=== PATIENT | female | born 1955 | race Caucasian/White ===

== ENCOUNTER → 2016-06-23 | Outpatient (CLI) | payer OTHER ==
[~2016-06-23] MED LIST: DCS100C PO; ESTR1TAB24 PO; HYDR-1231 PO; HYDR-89 PO; IBP800T PO; LEVO250T7 PO; LISI10TA PO; PROM12.59 PO; TRAZ150T42 PO
--- OUTSIDE RECORDS SUMMARY | 2016-06-23 08:10 | XMS REPORT | Continuity of Care Document ---
Author Author [facility] Organization [facility] Address Unknown Phone Unavailable Care Team Providers Care Nurse Practitioner Name Role Phone DIANELYS PAYAN DO PCP Insurance Providers Payer Name Policy Number Subscriber Name Relationship [facility] [employer]. [id number] Marcy Cunningham 17 Self / Same As Patient Advance Directives Directive Response Recorded Date/Time Advance Directives No 06/13/14 10:53pm Health Care Power of Mill [employer] No 06/13/14 10:53pm Organ Donor No 06/13/14 10:53pm Resuscitation Status Full Code 06/13/14 10:53pm Problems Medical Problems Problem Onset Date Status Bimalleolar ankle fracture Unknown Active Medications Medication Dose Route Sig Days/Qty Instructions Order Date Discontinued Date Status Lisinopril (Zestril) 1 Each PO BEDTIME 04/15/10 Active Trazodone Hcl 100 Mg PO BEDTIME 04/15/10 Active Estradiol 1 Mg PO BEDTIME 04/15/10 Active Docusate Sodium 100 Mg PO TWICE A DAY 04/22/10 Active Estradiol 2 Mg PO DAILY 04/22/10 07/25/12 Discontinued Levofloxacin 1 Each PO DAILY 04/22/10 07/25/12 Discontinued Acetaminophen/Hydrocodone Bitart 1 - 2 Each PO Q 3 HR PRN PAIN 07/25/12 Discontinued Ibuprofen 800 Mg PO Q 6 HR PRN CRAMPS 04/22/10 07/25/12 Discontinued Promethazine Hcl 12.5 Mg PO Q 3 HR PRN NAUSEA. 04/22/10 07/25/12 Discontinued Hydrocodone Bit/Acetaminophen 1 Tab PO EVERY 4HRS PRN PAIN 20 Qty 06/14 Active Social History Social History Problem Response Recorded Date/Time Alcohol Use Denies Use 06/13/2014 10:53pm Recreational Drug Use No 06/13/2014 10:53pm Recent Foreign Travel No 06/13/2014 10:51pm Recent Infectious Disease Exposure No 06/13/2014 10:51pm Smoking Status Never a Smoker 06/13/2014 10:53pm Query Response Start Date Stop Date Smoking Status Never a Smoker Hospital Discharge Instructions No hospital discharge instructions. Plan of Care No plan of care. Functional Status No functional status results. Allergies, Adverse Reactions, Alerts Allergen Type Severity Reaction Status Last Updated latex Allergy EYE SWELLING, RASH Active 04/15/10 RUBBER Allergy EYE SWELLING, RASH Active 04/15/10 Immunizations Name Given Type Tetanus Booster (TDap) Unknown Historical Vital Signs Acute Vital Signs Vital Response Date/Time Temperature (Fahrenheit) 98.8 degrees F (97.6 - 99.5) Temperature (Calculated Celsius) 37.51137 degrees C (36.4 - 37.5) Temperature Source Temporal Pulse Rate (adult) 88 bpm (60 - 90) Respiratory Rate 18 bpm (12 - 24) O2 Sat by Pulse Oximetry 98 % (88 - 100) Blood Pressure 135/82 mm Hg Pain Pain Intensity 2 Height (Feet) 5 feet Height (Inches) 0 inches Height (Calculated Centimeters) 152.340054 cm Weight (Pounds) 129 pounds Weight (Calculated Kilograms) 58.090675 kilograms Calculated BMI 25.19 Results No known relevant diagnostic tests, laboratory data and/or discharge summary. Procedures No known history of procedures. Encounters Encounter Location Date/Time Departed Emergency Room [facility] 06/13/14 9:37pm Recent Diagnosis
--- NOTE | 2016-06-23 18:41 | Diagnostic Imaging Report ---
Ultrasound right breast limited. INDICATION: Follow-up exam. FINDINGS: The previous right breast ultrasound exam performed on 05/08/2015 noted a 0.8 x 0.7 x 0.8 cm partially cystic lesion in the 9 o'clock position of the right breast roughly 5 cm from the nipple. There is no internal vascularity associated with this finding. This area of mixed echogenicity appears stable on the subsequent ultrasound exam of 12/02/2015. On this study, the area in question is again evident and no different in size or appearance. I do suspect that this is a benign process. Even so, I would recommend that a short-term (6-month) follow-up ultrasound exam of the right breast be obtained for further evaluation of this finding. No other abnormality is identified. IMPRESSION: The complex cystic mass in the 9 o'clock position in the right breast seen previously appears stable. Most likely, this is a benign process. Recommendations as above. ACR BI-RADS Category 3: Probably benign findings. Dictated by: Dictated on workstation # [id number]
--- NOTE | 2016-06-23 19:58 | Diagnostic Imaging Report ---
INDICATION: Abnormal mammogram, followup. At this time there are no current complaints. EXAMINATION: Bilateral breast digital diagnostic mammogram with CAD. The current study was also evaluated with a Computer Aided Detection (CAD) system. COMPARISON: This study was compared to the prior exams of 04/28/15, 04/01/14, 02/13/13 and 02/09/12. FINDINGS: The fibroglandular tissue in both breasts is dense. This does limit the sensitivity of this exam. The previous right breast ultrasound exam of 05/08/15 did note a complex cystic lesion in the 9 o'clock position of the right breast, roughly 5 cm from the nipple. This measures roughly 1 cm in size. That finding is not particularly well-visualized but does not seem to have changed significantly since the prior study. Ultrasound of the right breast is pending for further evaluation. The overall appearance of the breast is otherwise no different. There is no primary or secondary sign of malignancy noted. IMPRESSION: 1. There is no evidence for malignancy. 2. Ultrasound is pending for further evaluation of the complex cystic lesion in the 9 o'clock position of the right breast. ACR BI-RADS Category 0: Incomplete. (Needs additional imaging evaluation). Result letter will be mailed to the patient. Note: At least 10% of breast cancer is not imaged by mammography. Dictated by: Dictated on workstation # [id number]
== END ==
LOC: RAD 08:07
PROVIDERS: ATTEND Family Medicine
DX: R92.8 Other abnormal and inconclusive findings on diagnostic imaging of breast (principal)
CPT/HCPCS: 77066

== ENCOUNTER 2016-11-14 11:04 | Observation (INO) | payer OTHER ==
[~2016-11-14] VITALS: Ht 152.4 cm; Wt 58.5 kg
--- NOTE | 2016-11-14 11:18 | ED EENT ---
History of Present Illness General Stated Complaint: WEAK/SHAKY SOA Source: patient Exam Limitations: no limitations History of Present Illness Time seen by provider: 11:16 Initial Comments To ER with weakness, shakiness, shortness of breath/dyspnea on exertion for the past week. She denies any chest pain. She denies cough. She does report chills but no fevers. She reports tightness in the back of her legs bilaterally but no swelling. She states that when she lays down at night she feels as though her legs cannot relax. Timing/Duration: abrupt Severity: moderate Associated Symptoms: No fever, No nasal congestion/drainage, No sore throat Allergies and Home Medications Allergies Coded Allergies: latex (Unverified Allergy, Unknown, EYE SWELLING, RASH, 11/14/16) Uncoded Allergies: RUBBER (Allergy, Unknown, EYE SWELLING, RASH, 11/14/16) Home Medications Docusate Sodium 100 Mg Capsule, 100 MG PO BID, (Reported) Estradiol 1 Mg Tablet, 1 MG PO HS, (Reported) Hydrocodone Bit/Acetaminophen 1 Tab Tablet, 1 TAB PO Q4H PRN for PAIN, #20 Ref 0 Prescribed by: ADIS MARTELL on 06/14/14 0018 Lisinopril 10 Mg Tablet, 1 EACH PO HS, (Reported) Trazodone Hcl 150 Mg Tablet, 100 MG PO HS, (Reported) Review of Systems Constitutional: see HPI Eyes: No Symptoms Reported Ears: No Symptoms Reported Nose: no symptoms reported Mouth: no symptoms reported Throat: no symptoms reported Respiratory: no symptoms reported Cardiovascular: no symptoms reported Musculoskeletal: no symptoms reported Skin: no symptoms reported Neurological: No Symptoms Reported Hematologic/Lymphatic: No Symptoms Reported Immunological/Allergic: no symptoms reported Past Wgaaqli-Zulltw-Loowxw Hx Patient Social History Recent Foreign Travel: No Contact w/Someone Who Travel: No Immunizations Up To Date Tetanus Booster (TDap): Unknown Surgeries HX Surgeries: No Respiratory Hx Respiratory Disorders: No Cardiovascular Hx Cardiac Disorders: Yes Cardiac Disorders: Hypertension Neurological Hx Neurological Disorders: No Reproductive System Hx Reproductive Disorders: Yes (UTERO VAGINAL PROLAPSE) Genitourinary Hx Genitourinary Disorders: Yes (IRMA) Gastrointestinal Hx Gastrointestinal Disorders: Yes Musculoskeletal Hx Musculoskeletal Disorders: No Endocrine Hx Endocrine Disorders: No HEENT HX ENT Disorders: No Cancer Hx Cancer: No Psychosocial Hx Psychiatric Problems: Yes Behavioral Health Disorders: Sleep Difficulties, Anxiety Blood Transfusions Hx Blood Disorders: No Family Medical History Significant Family History: No Pertinent Family Hx Physical Exam Vital Signs Vital Sign - Last 12Hours 11/14/16 11:08 Temp 97.8 Pulse 85 Resp 12 B/P (MAP) 164/82 Pulse Ox 97 O2 Delivery Room Air General Appearance: WD/WN, no apparent distress Eyes: bilateral eye EOMI, bilateral eye PERRL, bilateral eye normal inspection Ears: bilateral ear TM normal, bilateral ear auricle normal, bilateral ear canal normal Mouth/Throat: normal mouth inspection, pharynx normal Neck: non-tender, full range of motion Cardiovascular: regular rate, rhythm, no murmur Respiratory: no respiratory distress, no accessory muscle use Gastrointestinal: normal bowel sounds, non tender, soft Neurologic/Psychiatric: alert, normal mood/affect, oriented x 3 Skin: normal color, warm/dry Progress/Results/Core Measures Results/Orders Lab Results Laboratory Tests Test 11/14/16 11:10 11/14/16 11:15 11/14/16 12:24 Range/Units White Blood Count 5.4 4.3-11.0 10^3/uL Red Blood Count 4.24 L 4.35-5.85 10^6/uL Hemoglobin 13.2 11.5-16.0 G/DL Hematocrit 39 35-52 % Mean Corpuscular Volume 93 80-99 FL Mean Corpuscular Hemoglobin 31 25-34 PG Mean Corpuscular Hemoglobin Concent 34 32-36 G/DL Red Cell Distribution Width 11.6 10.0-14.5 % Platelet Count 346 130-400 10^3/uL Mean Platelet Volume 9.8 7.4-10.4 FL Neutrophils (%) (Auto) 62 42-75 % Lymphocytes (%) (Auto) 27 12-44 % Monocytes (%) (Auto) 9 0-12 % Eosinophils (%) (Auto) 2 0-10 % Basophils (%) (Auto) 0 0-10 % Neutrophils # (Auto) 3.3 1.8-7.8 X 10^3 Lymphocytes # (Auto) 1.4 1.0-4.0 X 10^3 Monocytes # (Auto) 0.5 0.0-1.0 X 10^3 Eosinophils # (Auto) 0.1 0.0-0.3 10^3/uL Basophils # (Auto) 0.0 0.0-0.1 10^3/uL D-Dimer 0.31 0.00-0.49 UG/ML Sodium Level 136 135-145 MMOL/L Potassium Level 3.7 3.6-5.0 MMOL/L Chloride Level 102 98-107 MMOL/L Carbon Dioxide Level 25 21-32 MMOL/L Anion Gap 9 5-14 MMOL/L Blood Urea Nitrogen 6 L 7-18 MG/DL Creatinine 0.75 0.60-1.30 MG/DL Estimat Glomerular Filtration Rate > 60 BUN/Creatinine Ratio 8 Glucose Level 114 H 70-105 MG/DL Calcium Level 9.1 8.5-10.1 MG/DL Total Bilirubin 0.6 0.1-1.0 MG/DL Aspartate Amino Transf (AST/SGOT) 23 5-34 U/L Alanine Aminotransferase (ALT/SGPT) 26 0-55 U/L Alkaline Phosphatase 124 40-136 U/L Troponin I < 0.30 <0.30 NG/ML B-Type Natriuretic Peptide 23.8 <100.0 PG/ML Total Protein 7.6 6.4-8.2 GM/DL Albumin 3.9 3.2-4.5 GM/DL Erythrocyte Sedimentation Rate 32 H 0-30 MM/HR C-Reactive Protein High Sensitivity 0.50 0.00-0.50 MG/DL Urine Color YELLOW Urine Clarity CLEAR Urine pH 7 5-9 Urine Specific [place] 1.005 L 1.016-1.022 Urine Protein NEGATIVE NEGATIVE Urine Glucose (UA) NEGATIVE NEGATIVE Urine Ketones NEGATIVE NEGATIVE Urine Nitrite NEGATIVE NEGATIVE Urine Bilirubin NEGATIVE NEGATIVE Urine Urobilinogen NORMAL NORMAL MG/DL Urine Leukocyte Esterase NEGATIVE NEGATIVE Urine RBC (Auto) NEGATIVE NEGATIVE Urine RBC NONE /HPF Urine WBC 0-2 /HPF Urine Squamous Epithelial Cells 2-5 /HPF Urine Crystals NONE /LPF Urine Bacteria NEGATIVE /HPF Urine Casts NONE /LPF Urine Mucus NEGATIVE /LPF Urine Culture Indicated NO My Orders Orders - BRIAN DUMONT APRN Cbc With Automated Diff (11/14/16 11:07) Comprehensive Metabolic Panel (11/14/16 11:07) BNP (11/14/16 11:07) Fibrin Degradation Products (11/14/16 11:07) Ekg Tracing (11/14/16 11:07) Continuous Ekg Monitoring (11/14/16 11:07) Chest 1 View, Ap/Pa Only (11/14/16 11:07) Saline Lock/Iv-Start (11/14/16 11:07) Ua Culture If Indicated (11/14/16 11:07) Troponin I (11/14/16 11:15) Hs C Reactive Protein (11/14/16 11:31) Erythrocyte Sedimentation Rate (11/14/16 11:31) Ct Angio Chest W (11/14/16 12:02) Iohexol Injection (Omnipaque 350 Mg/Ml 1 (11/14/16 12:15) Sodium Chloride Flush (Catheter Flush Sy (11/14/16 12:15) Ns (Ivpb) (Sodium Chloride 0.9% Ivpb Bag (11/14/16 12:15) Medications Given in ED Current Medications Medications Dose Ordered Sig/Johnnie Route Start Time Stop Time Status Last Admin Dose Admin Iohexol 125 ml ONCE ONCE IV 11/14/16 12:15 11/14/16 12:16 DC 11/14/16 12:15 125 ML Sodium Chloride 10 ml NEEDED PRN IV 11/14/16 12:15 11/14/16 12:15 10 ML Sodium Chloride 100 ml ONCE ONCE IV 11/14/16 12:15 11/14/16 12:16 DC 11/14/16 12:15 80 ML Vital Signs/I&O Vital Sign - Last 12Hours 11/14/16 11:08 Temp 97.8 Pulse 85 Resp 12 B/P (MAP) 164/82 Pulse Ox 97 O2 Delivery Room Air Progress Note : Progress Note 1311-patient did have an increase in heart rate from 80s sinus to 131 sinus upon ambulation down the hallway in the emergency room. Oxygen saturation remained 98-100 percent. Denied chest pain. Discussed this with Dr. Dr. Payan and he would like to put her in with cardiology consult. Diagnostic Imaging Diagonstic Imaging: Xray Comments NAME: JAMES CUNNINGHAMNancy Sargent MED REC#: [id number] PT STATUS: REG ER : 1955 PHYSICIAN: BRIAN DUMONT APRN ADMIT DATE: 11/14/16/ER Draft Date of Exam:11/14/16 CHEST 1 VIEW, AP/PA ONLY Portable erect AP chest at 1139h. INDICATION: Shortness of breath. There are no prior studies available for comparison. Heart size is within normal limits. The lungs are clear. There is no sign of failure, pneumonia or a pleural effusion to suggest an acute abnormality. There is a small 4 MM rounded noncalcified nodular density in the right perihilar region. I suspect that this is either due to a vessel seen on end or to a granuloma. If previous studies are available they would be helpful for comparison. The mediastinum is not widened. The osseous structures are intact. IMPRESSION: 1. There is no evidence for an acute cardiopulmonary abnormality. 2. The small nodular density in the right perihilar region is of uncertain etiology although most likely benign. Recommendations as above. Dictated on workstation # [id number] Dict: 11/14/16 1148 Trans: 11/14/16 1159 FELICITA [id number] Interpreted by: ODELL ALEMAN MD Electronically signed by: NAME: EDIN CUNNINGHAM [facility] REC#: [id number] PT STATUS: REG ER : 1955 PHYSICIAN: BRIAN DUMONT APRN ADMIT DATE: 11/14/16/ER Draft Date of Exam:11/14/16 CT ANGIO CHEST W PROCEDURE: CT angiography of the chest with contrast. TECHNIQUE: Multiple contiguous axial images were obtained through the chest after uneventful bolus administration of intravenous contrast. Reconstructed CTA MIP acquisitions were also performed. INDICATION: Weakness. Shortness of breath. CONTRAST: 125 mL of Omnipaque 350 was administered intravenously. FINDINGS: The pulmonary arteries are well opacified with no filling defects seen to suggest pulmonary embolism. The thoracic aorta is normal in caliber. No dissection. The heart size is normal. No pleural or pericardial effusion. There is minimal atelectasis or scarring in the right middle lobe. There is otherwise no significant consolidation, mass, or suspicious pulmonary nodule. There is a small hiatal hernia. Sections of the upper abdomen demonstrate no significant abnormality. The osseous structures also appear grossly unremarkable. IMPRESSION: 1. No pulmonary embolism or aortic dissection. 2. Minimal atelectasis or scarring in the right middle lobe. 3. Small hiatal hernia. Dictated on workstation # [id number] Dict: 11/14/16 1227 Trans: 11/14/16 1248 [id number] Interpreted by: AUDREY SKAGGS MD Electronically signed by: Departure Communication Time/Spoke to Consulting Physi: 13:17 Communication/Consulting I also discussed the case with Dr. García. We will admit the patient, 2-D echocardiogram today and a pharmacologic stress test in the morning. Progress Notes NAME: EDIN CUNNINGHAM [facility] REC#: [id number] PT STATUS: REG ER : 1955 PHYSICIAN: BRIAN DUMONT APRN ADMIT DATE: 11/14/16/ER Draft Date of Exam:11/14/16 CHEST 1 VIEW, AP/PA ONLY Portable erect AP chest at 1139h. INDICATION: Shortness of breath. There are no prior studies available for comparison. Heart size is within normal limits. The lungs are clear. There is no sign of failure, pneumonia or a pleural effusion to suggest an acute abnormality. There is a small 4 MM rounded noncalcified nodular density in the right perihilar region. I suspect that this is either due to a vessel seen on end or to a granuloma. If previous studies are available they would be helpful for comparison. The mediastinum is not widened. The osseous structures are intact. IMPRESSION: 1. There is no evidence for an acute cardiopulmonary abnormality. 2. The small nodular density in the right perihilar region is of uncertain etiology although most likely benign. Recommendations as above. Dictated on workstation # [id number] Dict: 11/14/16 1148 Trans: 11/14/16 1159 [facility] [id number] Interpreted by: ODELL ALEMAN MD Electronically signed by: Impression Impression: Primary Impression: Dyspnea Disposition: ADMITTED INPATIENT Condition: Stable Decision to Admit Reason: Admit from ER (General) Decision to Admit/Date: Nov 14, 2016 Time/Decision to Admit Time: 13:12 Departure-Patient Inst. Decision time for Depature: 12:01 Referrals: DIANELYS PAYAN DO (PCP/Family) Primary Care Physician BRIAN DUMONT APRN Nov 14, 2016 11:18
[2016-11-14 11:30] LABS: BASOPHILS % (AUTO) 0 % (0-10); EOSINOPHILS # (AUTO) 0.1 10^3/uL (0.0-0.3); EOSINOPHILS % (AUTO) 2 % (0-10); LYMPHOCYTES # (AUTO) 1.4 X 10^3 (1.0-4.0); LYMPHOCYTES % (AUTO) 27 % (12-44); MEAN CORPUSCULAR HEMOGLOBIN 31 PG (25-34); MEAN CORPUSCULAR HGB CONC 34 G/DL (32-36); MEAN CORPUSCULAR VOLUME 93 FL (80-99); MEAN PLATELET VOLUME 9.8 FL (7.4-10.4); MONOCYTES # (AUTO) 0.5 X 10^3 (0.0-1.0); MONOCYTES % (AUTO) 9 % (0-12); NEUTROPHILS # (AUTO) 3.3 X 10^3 (1.8-7.8); NEUTROPHILS % (AUTO) 62 % (42-75); PLATELET COUNT 346 10^3/uL (130-400); RED BLOOD COUNT 4.24 10^6/uL (4.35-5.85); RED CELL DISTRIBUTION WIDTH 11.6 % (10.0-14.5); WHITE BLOOD COUNT 5.4 10^3/uL (4.3-11.0)
[2016-11-14 11:45] LABS: ALANINE AMINOTRANSFERASE 26 U/L (0-55); ALBUMIN 3.9 GM/DL (3.2-4.5); ANION GAP 9 MMOL/L (5-14); ASPARTATE AMINO TRANSFERASE 23 U/L (5-34); BILIRUBIN,TOTAL 0.6 MG/DL (0.1-1.0); BLOOD UREA NITROGEN 6 MG/DL (7-18); BUN/CREATININE RATIO 8; CALCIUM 9.1 MG/DL (8.5-10.1); CARBON DIOXIDE 25 MMOL/L (21-32); CHLORIDE 102 MMOL/L (98-107); CREATININE SERUM 0.75 MG/DL (0.60-1.30); GFR ESTIMATED > 60; GLUCOSE 114 MG/DL (70-105); POTASSIUM 3.7 MMOL/L (3.6-5.0); SODIUM 136 MMOL/L (135-145); TOTAL PROTEIN 7.6 GM/DL (6.4-8.2)
[2016-11-14 11:51] LABS: TROPONIN I < 0.30 NG/ML (<0.30)
--- NOTE | 2016-11-14 11:59 | Diagnostic Imaging Report ---
Portable erect AP chest at 1139h. INDICATION: Shortness of breath. There are no prior studies available for comparison. Heart size is within normal limits. The lungs are clear. There is no sign of failure, pneumonia or a pleural effusion to suggest an acute abnormality. There is a small 4 MM rounded noncalcified nodular density in the right perihilar region. I suspect that this is either due to a vessel seen on end or to a granuloma. It would be unlikely that this is due to a neoplastic nodule. If previous studies are available they would be helpful for comparison. If there are no previous exams available then CT of the chest would be recommended for further evaluation. The mediastinum is not widened. The osseous structures are intact. IMPRESSION: 1. There is no evidence for an acute cardiopulmonary abnormality. 2. The small nodular density in the right perihilar region is of uncertain etiology although most likely benign. Recommendations as above. Dictated by: Dictated on workstation # [id number]
[2016-11-14] MEDS ORDERED: CATHETER FLUSH 10 ML SYR IV PRN ×2 (12:15→14:15)
[2016-11-14] MEDS ORDERED: NS 100 ML (IVPB) BAG IV ONE (12:15)
[2016-11-14] MEDS ORDERED: IOHEXOL 350 MG/ML 150 ML (OMNIPAQUE 350) VIAL IV ONE (12:15)
[2016-11-14 12:32] LABS: BILIRUBIN,URINE NEGATIVE (NEGATIVE); KETONES,URINE NEGATIVE (NEGATIVE); LEUKOCYTE ESTERASE ,URINE NEGATIVE (NEGATIVE); NITRITE,URINE NEGATIVE (NEGATIVE); PH,URINE 7 (5-9); PROTEIN,URINE NEGATIVE (NEGATIVE); UROBILINOGEN,URINE NORMAL (NORMAL)
[2016-11-14 12:39] LABS: WBC,URINE 0-2 /HPF
--- NOTE | 2016-11-14 12:49 | Diagnostic Imaging Report ---
PROCEDURE: CT angiography of the chest with contrast. TECHNIQUE: Multiple contiguous axial images were obtained through the chest after uneventful bolus administration of intravenous contrast. Reconstructed CTA MIP acquisitions were also performed. INDICATION: Weakness. Shortness of breath. CONTRAST: 125 mL of Omnipaque 350 was administered intravenously. FINDINGS: The pulmonary arteries are well opacified with no filling defects seen to suggest pulmonary embolism. The thoracic aorta is normal in caliber. No dissection. The heart size is normal. No pleural or pericardial effusion. There is minimal atelectasis or scarring in the right middle lobe. There is otherwise no significant consolidation, mass, or suspicious pulmonary nodule. There is a small hiatal hernia. Sections of the upper abdomen demonstrate no significant abnormality. The osseous structures also appear grossly unremarkable. IMPRESSION: 1. No pulmonary embolism or aortic dissection. 2. Minimal atelectasis or scarring in the right middle lobe. 3. Small hiatal hernia. Dictated by: Dictated on workstation # [id number]
[2016-11-14 14:00] VITALS: BP 139/67
[2016-11-14] MEDS ORDERED: TRAZ100T92 PO (15:06)
[2016-11-14] MEDS ORDERED: ESTR2TAB4 PO (15:06)
[2016-11-14] MEDS ORDERED: LORA10TA76 PO (15:06)
--- NOTE | 2016-11-14 15:06 | Consultation-Cardiology ---
HPI-Cardiology Cardiology Consultation: Date of Consultation 11/14/16 Date of Admission Attending Physician Saúl Lynne DO Admitting Physician Saúl Lynne DO Consulting Physician Arie GARCÍA MD HPI: Time Seen by Provider: 14:00 Chief Complaint: Shortness of breath This is a 61-year-old lady with history of hypertension. She denies any cardiac history. She also denies active smoking, diabetes, hyperlipidemia, family history of heart disease. She presents with the primary complain of fatigue and shortness of breath on exertion. She denies any weight gain any syncope, near-syncope, palpitations, chest pain. Shortness of breath is usually with exertion. Review of Systems-Cardiology Review of Systems Constitutional: No As described under HPI, No no symptoms reported, No chills, No fever, No lightheadedness, malaise, tiredness, No weight loss, No weight gain , No other Eyes: No As described under HPI, No no symptoms reported, No blindness, No blurred vision, No contact lenses, No drainage, No decreased acuity, No foreign body sensation, No glasses, No inflammation, No pain, No photophobia, No previous injury, No shadows, No tunnel vision, No other, No vision change Ears/Nose/Throat: No As described under HPI, No no symptoms reported, No chronic hearing loss, No epistaxis, No ear discharge, No ear pain, No loose teeth, No mouth pain, No mouth swelling, No nasal drainage, No nose pain, No recent hearing loss, No throat pain, No throat swelling, No ulcerations, No other Respiratory: shortness of breath Cardiovascular: No no symptoms reported, No As described under HPI, No chest pain, No edema, No irregular heart rate, No lightheadedness, No palpitations, No syncope, No other Gastrointestinal: No no symptoms reported, No As described under HPI, No abdomen distended, No abdominal pain, No blood streaked bowels, No constipation , No diarrhea, No difficulty swallowing, No nausea, No poor appetite, No poor fluid intake, No rectal bleeding, No vomiting, No other, No nausea/vomiting/ diarrhea, No stool coloration changes Genitourinary: No no symptoms reported, No As described under HPI, No burning, No dysuria, No discharge, No frequency, No flank pain, No hematuria, No incontinence, No pain, No urgency, No other, No urine frequency changes, No urine coloration changes Musculoskeletal: No no symptoms reported, No As describe under HPI, No back pain, No gout, No joint pain, No joint swelling, No muscle pain, No muscle stiffness, No neck pain, No other Skin: No no symptoms reported, No As described under HPI, No change in color, No change in hair/nails, No dryness, No lesions, No lumps, No rash, No other, No skin related problems, No ulcerations, No rash on exposed areas, No ulcerations on exposed areas Psychiatric/Neurological: No As described under HPI, No anxiety, No depression , No emotional problems, No focal weakness, No headache, No no symptoms reported , No numbness, No other, No pre-existing deficit, No seizure, No syncope, No tingling, No tremors, No weakness Hematologic: No no symptoms reported, No As described under HPI, No anemia, No blood clots, No easy bleeding, No easy bruising, No swollen glands, No other, No bleeding abnormalities HFE-Amwdki-Qqxmum Hx Patient Social History Alcohol Use: Denies Use Recreational Drug Use: No Smoking Status: Never a Smoker 2nd Hand Smoke Exposure: No Recent Foreign Travel: No Recent Infectious Disease Expo: No Hospitalization with Isolation: Denies Immunizations Up To Date Tetanus Booster (TDap): Unknown Past Medical History PMH As described under Assessment. Allergies and Home Medications Allergies Coded Allergies: latex (Unverified Allergy, Unknown, EYE SWELLING, RASH, 11/14/16) Uncoded Allergies: RUBBER (Allergy, Unknown, EYE SWELLING, RASH, 11/14/16) Home Medications Docusate Sodium 100 Mg Capsule, 100 MG PO BID, (Reported) Estradiol 1 Mg Tablet, 1 MG PO HS, (Reported) Hydrocodone Bit/Acetaminophen 1 Tab Tablet, 1 TAB PO Q4H PRN for PAIN, #20 Ref 0 Prescribed by: ADIS MARTELL on 06/14/14 0018 Lisinopril 10 Mg Tablet, 1 EACH PO HS, (Reported) Trazodone Hcl 150 Mg Tablet, 100 MG PO HS, (Reported) Physical Exam-Cardiology Physical Exam Vital Signs/I&O Vital Sign - Last 12Hours 11/14/16 11:08 Temp 97.8 Pulse 85 Resp 12 B/P (MAP) 164/82 Pulse Ox 97 O2 Delivery Room Air Capillary Refill : Less Than 3 Seconds Constitutional: No appears stated age, No AAO x 3, No apparent distress, No PERRL, No well-developed, No well-nourished, No other HEENT: No PERRL, No normal ENT inspection, No TMs normal, No pharynx normal, No scleral icterus (R), No scleral icterus (L), No pale conjunctivae (R), No pale conjunctivae (L), No photophobia, No TM abnormal (R), No TM abnormal (L), No pharyngeal erythema, No tonsillar exudate, No other, No discharge, No EOMI, No hearing is well preserved, No hard of hearing, No oral hygience is good, No ulceration, No xanthelasmas are seen Neck: No non-tender, No full range of motion, No supple, No normal inspection, No carotid bruit, No limited range of motion, No lymphadenopathy (R), No lymphadenopathy (L), No tender lateral, No tender midline, No thyromegaly, No other, No carotid pulses are 2 + bilaterally, No with good upstrokes Respiratory: No accessory muscle use, No respiratory distress, No chest tender , No chest expansion is symmetric, No chest is bilaterally symmetric, No lungs clear to percussion, No lungs clear to auscultation, No crackles, No rhonchi, No rales, No stridor, No wheezing, No pleural rub, No other Cardiovascular: No regular rate-rhythm, No irregularly irregular, No extra beats, No parasternal heave is noted, No JVD, No edema, No bradycardia, No tachycardia, No point of maximal impulse, No cardiac thrills are palpable, No S1 and S2, No gallop/S3, No gallop/S4, No diastolic murmur, No systolic murmur, No friction rub, No click, No other Gastrointestinal: No tender, No soft, No round, No distended, No pulsatile mass , No organomegaly, No guarding, No rebound, No tenderness, No hernia, No mass, No audible bowel sounds, No abnormal bowel sounds, No abdominal bruits, No spleenomegaly, No other Rectal: deferred Extremities: No clubbing, No cyanosis, No significant edema Neurologic/Psychiatric: alert, oriented x 3, power is 5/5 both on sides Skin: No rash, No ulcerations Data Review Labs Laboratory Tests 11/14/16 11:10: White Blood Count 5.4, Red Blood Count 4.24L, Hemoglobin 13.2, Hematocrit 39, Mean Corpuscular Volume 93, Mean Corpuscular Hemoglobin 31, Mean Corpuscular Hemoglobin Concent 34, Red Cell Distribution Width 11.6, Platelet Count 346, Mean Platelet Volume 9.8, Neutrophils (%) (Auto) 62, Lymphocytes (%) (Auto) 27, Monocytes (%) (Auto) 9, Eosinophils (%) (Auto) 2, Basophils (%) (Auto) 0, Neutrophils # (Auto) 3.3, Lymphocytes # (Auto) 1.4, Monocytes # (Auto) 0.5, Eosinophils # (Auto) 0.1, Basophils # (Auto) 0.0, D-Dimer 0.31, Sodium Level 136 , Potassium Level 3.7, Chloride Level 102, Carbon Dioxide Level 25, Anion Gap 9 , Blood Urea Nitrogen 6L, Creatinine 0.75, Estimat Glomerular Filtration Rate > 60, BUN/Creatinine Ratio 8, Glucose Level 114H, Calcium Level 9.1, Total Bilirubin 0.6, Aspartate Amino Transf (AST/SGOT) 23, Alanine Aminotransferase ( ALT/SGPT) 26, Alkaline Phosphatase 124, Troponin I < 0.30, B-Type Natriuretic Peptide 23.8, Total Protein 7.6, Albumin 3.9 11/14/16 11:15: Erythrocyte Sedimentation Rate 32H, C-Reactive Protein High Sensitivity 0.50 11/14/16 12:24: Urine Color YELLOW, Urine Clarity CLEAR, Urine pH 7, Urine Specific [place] 1.005L, Urine Protein NEGATIVE, Urine Glucose (UA) NEGATIVE, Urine Ketones NEGATIVE, Urine Nitrite NEGATIVE, Urine Bilirubin NEGATIVE, Urine Urobilinogen NORMAL, Urine Leukocyte Esterase NEGATIVE, Urine RBC (Auto) NEGATIVE, Urine RBC NONE, Urine WBC 0-2, Urine Squamous Epithelial Cells 2-5, Urine Crystals NONE, Urine Bacteria NEGATIVE, Urine Casts NONE, Urine Mucus NEGATIVE, Urine Culture Indicated NO A/P-Cardiology Assessment/Admission Diagnosis Shortness of breath, hypertension, fatigue Plan On examination the patient is not in heart failure. BNP is normal. Continue serial troponin. We'll request echocardiogram and pharmacological nuclear stress test in the morning. Deferred evaluation and treatment of fatigue and shakiness to Dr. Lynne. Thank you for your consultation. Please call me if you have any questions. Severino García MD, FACP, FACC, FSCAI, FHRS, CCDS Interventional Cardiology Cardiac Electrophysiology Vascular Medicine and Endovascular Interventions rAie GARCÍA MD Nov 14, 2016 15:06
[2016-11-14] MEDS: NS IV 1000 ML 1,000 ML IV SCH (15:11)
[2016-11-14 16:26] VITALS: BP 138/68
[2016-11-14] MEDS ORDERED: LOPERAMIDE 2 MG (IMODIUM) CAP PO PRN (18:30)
[2016-11-14 18:42] LABS: MAGNESIUM 1.8 MG/DL (1.8-2.4)
[2016-11-14 19:08] LABS: THYROID STIMULATING HORMONE 0.74 UIU/ML (0.35-4.94)
[2016-11-14 20:00] VITALS: BP 143/82
[2016-11-14] MEDS ORDERED: ENOXAPARIN 40 MG/0.4 ML (LOVENOX) SYR SC SCH (21:00)
[2016-11-15] VITALS: BP 122/71
[2016-11-15] MEDS: NS IV 1000 ML 1,000 ML IV SCH ×2 (01:26→12:37)
[2016-11-15 04:00] VITALS: BP 139/64
[2016-11-15] MEDS ORDERED: ONDANSETRON 4 MG/2 ML (SDV) Z0FRAN IVP PRN (04:15)
[2016-11-15] MEDS ORDERED: HYDROcodone/APAP 5 MG/325 MG (LORTAB) TAB PO ONE (04:15)
--- NOTE | 2016-11-15 07:36 | History & Physicial ---
History of Present Illness History of Present Illness Reason for visit/HPI patient came to the office yesterday complaining of weakness, shakiness, short of breath, dyspnea on exertion starting last week. Patient lying on table due to not feeling good. Patient sent out to the emergency room. Patient wanted exerts itself gets weak tired and short of breath. Patient had lab tests and x-rays which were negative. Patient had a walk in the emergency room and heart rate went to 130. Patient admitted for observation and consult with cardiology. Surgeries, complete hysterectomy and bladder sling, rectal, gallbladder, appendectomy. Family history father cancer. Denies asthma, TB, diabetes, heart disease, and lung disease. Head admits to headache and denies dizziness or fainting. HEENT denies diplopia tinnitus or throat. Heart has history of hypertension denies chest pain . Lungs admits to shortness of breath with exertion, denies asthma TB diabetes. Gastrointestinal denies blood pain constipation. Didn't get an episode of diarrhea Genitourinary denies blood pain or frequency Date of Admission Nov 14, 2016 at 13:11 Time Seen by Provider: 07:15 I consulted on this patient on 11/15/16 07:30 Attending Physician Saúl Payan DO Admitting Physician Saúl Payan DO Consult Allergies and Home Medications Allergies Coded Allergies: latex (Unverified Allergy, Unknown, EYE SWELLING, RASH, 11/14/16) Uncoded Allergies: RUBBER (Allergy, Unknown, EYE SWELLING, RASH, 11/14/16) Home Medications Estradiol 2 Mg Tablet, 2 MG PO DAILY, (Reported) Lisinopril 10 Mg Tablet, 10 MG PO HS, (Reported) Loratadine 10 Mg Tablet, 10 MG PO DAILY, (Reported) Trazodone HCl 100 Mg Tablet, 50 MG PO HS, (Reported) TAKES 1/2 (100MG) TABLET Past Khtxxkm-Ewwvmp-Cqpxak Hx Patient Social History Marrital Status: Employed/Student: employed Alcohol Use: Denies Use Recreational Drug Use: No Smoking Status: Never a Smoker 2nd Hand Smoke Exposure: No Physical Abuse Screen: No Sexual Abuse: No Recent Foreign Travel: No Contact w/other who traveled: No Recent Hopitalizations: No Recent Infectious Disease Expo: No Immunizations Up To Date Tetanus Booster (TDap): Unknown Seasonal Allergies Seasonal Allergies: Yes Surgeries HX Surgeries: No Surgeries: Bladder Surgery, Hysterectomy, Rectal Respiratory Hx Respiratory Disorders: No Cardiovascular Hx Cardiovascular Disorders: Yes Cardiac Disorders: Hypertension Neurological Hx Neurological Disorders: No Reproductive System Hx Reproductive Disorders: Yes (UTERO VAGINAL PROLAPSE) Sexually Transmitted Disease: No HIV/AIDS: No Female Reproductive Disorders: Denies Genitourinary Hx Genitourinary Disorders: Yes (IRMA) Gastrointestinal Hx Gastrointestinal Disorders: Yes Musculoskeletal Hx Musculoskeletal Disorders: No Endocrine Hx Endocrine Disorders: No HEENT HX ENT Disorders: No Cancer Hx Cancer: No Psychosocial Hx Psychiatric Problems: Yes Behavioral Health Disorders: Sleep Difficulties, Anxiety Blood Transfusions Hx Blood Disorders: No Adverse Reaction to a Blood Tr: No Family Medical History Significant Family History: No Pertinent Family Hx, Cancer Constitutional: malaise, weakness, other (short of breath) EENTM: no symptoms reported Respiratory: dyspnea on exertion, short of breath Cardiovascular: no symptoms reported Gastrointestinal: no symptoms reported Genitourinary: no symptoms reported : No Skin: see HPI Physical Exam Vital Signs Vital Sign - Last 12Hours 11/14/16 11:08 Temp 97.8 Pulse 85 Resp 12 B/P (MAP) 164/82 Pulse Ox 97 O2 Delivery Room Air Capillary Refill : Less Than 3 Seconds General Appearance: No Apparent Distress, WD/WN Eyes: Bilateral Eye Normal Inspection HEENT: TMs Normal, Normal ENT Inspection Neck: Full Range of Motion, Normal Inspection, Non Tender, Supple Respiratory: Chest Non Tender, Lungs Clear, Normal Breath Sounds, No Accessory Muscle Use, No Respiratory Distress Cardiovascular: Regular Rate, Rhythm, No Murmur Gastrointestinal: Normal Bowel Sounds, Non Tender, Soft Assessment/Plan Assessment and Plan dyspnea. Tachycardia with walking. Fatigue. Hypertension. Headache Problems: Clinical Quality Measures DVT/VTE Risk/Contraindication: Risk Factor Score Per Nursin RFS Level Per Nursing on Admit: 3=High SAÚL PAYAN DO Nov 15, 2016 07:36
[2016-11-15 08:26] VITALS: BP 152/70
[2016-11-15] MEDS ORDERED: REGADENOSON 0.4 MG/5 ML SYR (LEXISCAN) IV ONE ×2 (08:55→09:15)
[2016-11-15 09:46] VITALS: BP 139/72
[2016-11-15 09:48] VITALS: BP 130/69
--- NOTE | 2016-11-15 11:28 | Cardiology Progress Note ---
Cardiology SOAP Progress Note Subjective: no shortness of breath overnight Objective: I&O/Vital Signs Vital Sign - Last 12Hours 11/15/16 11/15/16 11/15/16 11/15/16 00:00 01:00 04:00 07:00 Temp 96.8 98.1 Pulse 94 84 77 75 Resp 18 20 B/P (MAP) 122/71 139/64 Pulse Ox 96 95 O2 Delivery Room Air Room Air 11/15/16 11/15/16 11/15/16 11/15/16 08:06 08:26 09:04 09:46 Temp 96.4 Pulse 78 79 122 Resp 18 B/P (MAP) 152/70 139/72 Pulse Ox 95 98 96 O2 Delivery Room Air Room Air 11/15/16 09:48 Pulse 111 B/P (MAP) 130/69 Pulse Ox 99 Intake and Output 11/15/16 00:00 Intake Total 650 ml Balance 650 ml Weight (Pounds): 129 Weight (Ounces): 0.0 Weight (Calculated Kilograms): 58.800699 Constitutional: No appears stated age, No AAO x 3, No apparent distress, No PERRL, No well-developed, No well-nourished, No other Respiratory: No accessory muscle use, No respiratory distress, No chest tender , No chest expansion is symmetric, No chest is bilaterally symmetric, No lungs clear to percussion, No lungs clear to auscultation, No crackles, No rhonchi, No rales, No stridor, No wheezing, No pleural rub, No other Cardiovascular: No regular rate-rhythm, No irregularly irregular, No extra beats, No parasternal heave is noted, No JVD, No edema, No bradycardia, No tachycardia, No point of maximal impulse, No cardiac thrills are palpable, No S1 and S2, No gallop/S3, No gallop/S4, No diastolic murmur, No systolic murmur, No friction rub, No click, No other Gastrointestional: No tender, No soft, No round, No distended, No pulsatile mass, No organomegaly, No guarding, No rebound, No tenderness, No hernia, No mass, No audible bowel sounds, No abnormal bowel sounds, No abdominal bruits, No spleenomegaly, No other Extremities: No clubbing, No cyanosis, No significant edema Neurologic/Psychiatric: alert, oriented x 3, power is 5/5 both on sides Skin: No rash, No ulcerations Results/Procedures: Labs Laboratory Tests 11/14/16 12:24: Urine Color YELLOW, Urine Clarity CLEAR, Urine pH 7, Urine Specific [place] 1.005L, Urine Protein NEGATIVE, Urine Glucose (UA) NEGATIVE, Urine Ketones NEGATIVE, Urine Nitrite NEGATIVE, Urine Bilirubin NEGATIVE, Urine Urobilinogen NORMAL, Urine Leukocyte Esterase NEGATIVE, Urine RBC (Auto) NEGATIVE, Urine RBC NONE, Urine WBC 0-2, Urine Squamous Epithelial Cells 2-5, Urine Crystals NONE, Urine Bacteria NEGATIVE, Urine Casts NONE, Urine Mucus NEGATIVE, Urine Culture Indicated NO A/P: Assessment/Dx: Shortness of breath, hypertension, fatigue Plan: On examination the patient is not in heart failure. BNP is normal. Continue serial troponin. echocardiogram showed normal LV and RV function. No significant valvular heart disease. Pharmacological stress test done but review of myocardial perfusion imaging pending. Deferred evaluation and treatment of fatigue and shakiness to Dr. Lynne. Thank you for your consultation. Please call me if you have any questions. Severino Luis MD, FACP, FACC, FSCAI, FHRS, CCDS Interventional Cardiology Cardiac Electrophysiology Vascular Medicine and Endovascular Interventions Arie LUIS MD Nov 15, 2016 11:27 am
[2016-11-15 12:53] VITALS: BP 152/70
--- NOTE | 2016-11-15 14:09 | STRESS TEST ---
PROCEDURE PHYSICIAN: LINDA LUIS DATE OF PROCEDURE: 11/15/2016 PHARMACOLOGIC NUCLEAR STRESS TEST REPORT: ATTENDING PHYSICIAN: Dr. Lynne. DIAGNOSES: 1. Shortness of breath. 2. Fatigue. 3. Tachycardia. PROCEDURE DETAILS: The patient was brought to the stress lab after informed consent was taken. Lexiscan stress test was performed according to the protocol. 0.4 mg of Lexiscan was given IV. Low grade exercise was performed. Baseline EKG showed sinus rhythm with no ST-T wave abnormalities. Heart rate was 19 bpm. Blood pressure was 125/75 mmHg. Maximum heart rate was 138 bpm and blood pressure was 139/71 mmHg. The patient did not have any ST-T wave abnormalities, chest pain or arrhythmias during the stress test. 10.28 mCi of Myoview were given for rest imaging and 31.2 mCi of Myoview were given for stress imaging. TID was 1.12. EF was 80%. Normal wall motion. Normal perfusion during stress and rest imaging. SSS 1, SRS 0, SDS 1. CONCLUSION: 1. Pharmacological stress test negative for ischemia. 2. Normal LV function. 3. Normal perfusion with stress and rest. Job ID: [id number] Dictated Date: 11/15/2016 11:52:54 Sports Nutritionist Date: 11/15/2016 14:03:41 / neisha
--- NOTE | 2016-11-17 07:24 | Clinic Account Progress/Dx ---
Clinic Account Progress/Dx DIAGNOSIS: Time Seen by Provider: 07:20 Diagnosis dyspnea with exertion. Tachycardia with walking. Shortness of breath. Weakness. Hypertension. Fatigue. Headache. Shortness of breath Progress Note: dyspnea with exertion. Tachycardia with walking. Hypertension. Fatigue. Headache. Small hiatal hernia. DIANELYS PAYAN DO Nov 17, 2016 07:24
== END 2016-11-15 12:15 | disposition home or self-care (01) ==
LOC: EDUNIT# 11:04 → ER 11:06 → 4TH 13:11 → UNDOADMOB 13:11 → 4TH 13:50 → UNDODISOB 11-15 13:13
PROVIDERS: ADMIT Family Medicine; ATTEND Family Medicine
DX: R06.00 Dyspnea, unspecified (principal); R00.0 Tachycardia, unspecified; R53.83 Other fatigue; R51 Headache; I10 Essential (primary) hypertension; K44.9 Diaphragmatic hernia without obstruction or gangrene; Z79.899 Other long term (current) drug therapy
CPT/HCPCS: 36415; 71010; 71275; 78452; 80053; 81000; 83735; 83880; 84443; 84484; 85025; 85379; 85652; 86141; 93005; 93017; 93306; G0378

== ENCOUNTER → 2017-02-13 | Outpatient (CLI) | payer OTHER ==
[~2017-02-13] MED LIST changes: +ESTR2TAB4 PO; +LORA10TA76 PO; +TRAZ100T92 PO
--- NOTE | 2017-02-13 10:44 | Diagnostic Imaging Report ---
EXAMINATION: Right breast ultrasound. INDICATION: Followup hypoechoic lesion at the 9 o'clock zone 5 cm from the nipple in the right breast. FINDINGS: There is a 0.8 x 0.6 x 0.6 cm hypoechoic lesion with through transmission and internal debris suggested with no internal vascularity by color Doppler at the 9 o'clock zone 5 cm from the nipple. This is unchanged from multiple prior exams including the 05/08/2015 study, suggestive of benign etiology. IMPRESSION: Essentially stable complicated cyst without change from 05/08/2015, suggestive of a benign complicated cyst. No suspicious solid component is identified. Annual screening mammograms are recommended. ACR BI-RADS Category 2: Benign findings. Dictated by: Dictated on workstation # [id number]
== END ==
LOC: RAD 09:50
PROVIDERS: ATTEND Family Medicine
DX: N60.01 Solitary cyst of right breast (principal)

== ENCOUNTER → 2018-03-06 | Outpatient (CLI) | payer OTHER ==
[~2018-03-06] MED LIST changes: +TRAZ-190 PO; -TRAZ100T92 PO
--- NOTE | 2018-03-06 19:29 | Diagnostic Imaging Report ---
INDICATION: Routine screening. Comparison is made with prior mammograms from 06/22/2016 and 04/28/2015. 2-D and 3-D bilateral screening mammography was performed with computer-aided detection (CAD) system. FINDINGS: Both breasts are heterogeneously dense, limiting the sensitivity of mammography. In addition, there are innumerable calcifications throughout both breasts, limiting evaluation. No discrete mass is identified. The axillae are unremarkable. IMPRESSION: No mammographic features suspicious for malignancy are identified. ACR BI-RADS Category 2: Benign findings. Result letter will be mailed to the patient. Note: At least 10% of breast cancer is not imaged by mammography. Dictated by: Dictated on workstation # [id number]
== END ==
LOC: RAD 08:11
PROVIDERS: ATTEND Family Medicine
DX: Z12.31 Encounter for screening mammogram for malignant neoplasm of breast (principal)
CPT/HCPCS: 77067

== ENCOUNTER → 2019-05-07 | Outpatient (CLI) | payer MEDICARE, OTHER ==
--- NOTE | 2019-05-07 13:17 | Diagnostic Imaging Report ---
INDICATION: Routine screening. COMPARISON: Comparison is made with prior mammograms from 03/06/2018 and 06/23/2016. 2-D and 3-D bilateral screening mammography was performed. The current study was also evaluated with a Computer Aided Detection (CAD) system. 3-D tomosynthesis was also performed and reviewed. FINDINGS: Both breasts are heterogeneously dense, limiting the sensitivity of mammography. Extensive calcifications throughout both breasts are again noted. This does limit the study. A circumscribed density is noted in the retroareolar aspect of the left breast, laterally best seen on MLO tomographic image 10. Additional views are recommended. No other masses are seen. Axillae are unremarkable. IMPRESSION: Left breast retroareolar density, as described. Additional views are recommended. ACR BI-RADS Category 0: Incomplete. (Needs additional imaging evaluation). Result letter will be mailed to the patient. Note: At least 10% of breast cancer is not imaged by mammography. Dictated by: Dictated on workstation # [id number]
== END ==
LOC: RAD 09:40
PROVIDERS: ATTEND Family Medicine
DX: Z12.31 Encounter for screening mammogram for malignant neoplasm of breast (principal); R92.8 Other abnormal and inconclusive findings on diagnostic imaging of breast
CPT/HCPCS: 77067

== ENCOUNTER → 2019-05-15 | Outpatient (CLI) | payer MEDICARE, OTHER ==
--- NOTE | 2019-05-15 13:03 | Diagnostic Imaging Report ---
INDICATION: Left breast density. Patient presents for additional views. COMPARISON: Correlation is made with the recent screening study from 05/07/2019. TECHNIQUE: Unilateral left 2D and 3D diagnostic mammography was performed including spot compression CC and ML as well as conventional 90 degree lateral views. FINDINGS: There is a persistent circumscribed nodule in the retroareolar left breast in the lower and slightly outer aspect. This may represent a small cyst. Further evaluation with ultrasound is recommended. No other masses are detected. IMPRESSION: Persistent circumscribed retroareolar density, as described. Further evaluation with ultrasound is recommended and will be performed today. ACR BI-RADS Category 0: Incomplete. (Needs additional imaging evaluation). Result letter will be mailed to the patient. Note: At least 10% of breast cancer is not imaged by mammography. Dictated by: Dictated on workstation # [id number]
--- NOTE | 2019-05-15 14:21 | Diagnostic Imaging Report ---
INDICATION: Left breast density. COMPARISON: Correlation is made with the diagnostic study from earlier this same day and the screening mammogram from 05/07/2019. FINDINGS: A simple appearing cyst in the retroareolar left breast at the 4 o'clock location 3 cm from the nipple is noted measuring 7 mm x 5 mm x 5 mm. This corresponds in size and location to the mammographic density. No other masses are detected. IMPRESSION: Simple cyst in the left breast at the 4 o'clock location 3 cm from the nipple, corresponding to the mammographic density. The patient may return to routine annual screening mammography. ACR BI-RADS Category 2: Benign findings. Dictated by: Dictated on workstation # [id number]
== END ==
LOC: RAD 12:27
PROVIDERS: ATTEND Family Medicine
DX: N60.02 Solitary cyst of left breast (principal)
CPT/HCPCS: 76642

== ENCOUNTER → 2020-05-19 | Outpatient (CLI) | payer MEDICARE, OTHER ==
[~2020-05-19] MED LIST changes: -TRAZ-190 PO; +TRAZ-227 PO
--- NOTE | 2020-05-19 13:52 | Diagnostic Imaging Report ---
INDICATION: Routine screening. Comparison is made with prior mammogram from 05/07/2019 and 03/06/2018. 2-D and 3-D bilateral screening mammography was performed CAD. Both breasts are heterogeneously dense, limiting the sensitivity of mammography. Innumerable micro-calcifications throughout both breasts are again noted, limiting evaluation. Occasional circumscribed nodules are noted in both breasts, likely representing cysts. No mass or malignant appearing microcalcifications are seen. Axillae are unremarkable. IMPRESSION: BI-RADS Category 2 No mammographic features suspicious for malignancy are identified. ACR BI-RADS Category 2: Benign findings. Result letter will be mailed to the patient. Note: At least 10% of breast cancer is not imaged by mammography. Dictated by: Dictated on workstation # [id number]
== END ==
LOC: RAD 09:27
PROVIDERS: ATTEND Family Medicine
DX: Z12.31 Encounter for screening mammogram for malignant neoplasm of breast (principal)
CPT/HCPCS: 77063; 77067

== ENCOUNTER 2020-06-10 13:35 | Outpatient (RCR) | payer MEDICARE, OTHER | END 2020-07-08 10:58 | disposition home or self-care (01) | PROVIDERS: ATTEND Nurse Practitioner Family | DX: M75.01 Adhesive capsulitis of right shoulder (principal) ==

== ENCOUNTER 2020-11-19 15:52 | Outpatient (RCR) | payer MEDICARE, OTHER | END 2020-11-19 16:54 | disposition home or self-care (01) | PROVIDERS: ATTEND Podiatrist Foot & Ankle Surgery | DX: M72.2 Plantar fascial fibromatosis (principal); R26.9 Unspecified abnormalities of gait and mobility ==

== ENCOUNTER → 2021-05-20 | Outpatient (CLI) | payer MEDICARE, OTHER ==
--- NOTE | 2021-05-20 08:39 | Diagnostic Imaging Report ---
INDICATION: Routine screening. COMPARISON is made with prior mammograms 05/19/2020 and 05/07/2019. 2-D and 3-D bilateral screening mammography was performed with CAD. Both breasts are heterogeneously dense, limiting the sensitivity of mammography. Innumerable microcalcifications throughout both breasts are again noted, significantly limiting evaluation. No mass is identified. Axillae are unremarkable. IMPRESSION: BI-RADS Category 2 No mammographic features suspicious for malignancy are identified. ACR BI-RADS Category 2: Benign findings. Result letter will be mailed to the patient. Note: At least 10% of breast cancer is not imaged by mammography. Dictated by: Dictated on workstation # [id number]
== END ==
LOC: RAD 08:00
PROVIDERS: ATTEND Family Medicine
DX: Z12.31 Encounter for screening mammogram for malignant neoplasm of breast (principal)
CPT/HCPCS: 77063; 77067

== ENCOUNTER → 2021-09-06 | Outpatient (CLI) | payer MEDICARE, OTHER ==
[~2021-09-06] VITALS: Ht 152 cm; Wt 63.6 kg
[~2021-09-06] MED LIST changes: +ATOR20TA66 PO; +METO-333 PO
== END ==
LOC: PREOP 05:40
PROVIDERS: ATTEND Specialist
DX: Z01.818 Encounter for other preprocedural examination (principal)

== ENCOUNTER 2021-09-13 10:02 | Day surgery (SDC) | payer MEDICARE, OTHER ==
[~2021-09-13] VITALS: Ht 152 cm; Wt 63.6 kg
[2021-09-13] MEDS ORDERED: MIDAZOLAM 2 MG/2 ML (VERSED) VIAL ONE (10:11)
[2021-09-13] MEDS ORDERED: POVIDONE (BETADINE) OPHTH SOLN 5% 30 ML OP ONE (10:15)
[2021-09-13] MEDS ORDERED: LIDOCAINE PF 1% 2 ML VIAL IR PRN (10:15)
[2021-09-13] MEDS ORDERED: MOXIFLOXACIN OPHTH SOLN 5 MG/ML 0.3 ML SYRINGE OP ONE (10:15)
[2021-09-13] MEDS ORDERED: TIMOLOL MALEATE 0.5% 5 ML (TIMOPTIC) BTL OU PRN (10:15)
[2021-09-13] MEDS: TETRACAINE 0.5% OPHTH SOLN 4 ML BTL (SINGLE DOSE ONLY) OU PRN ×4 (10:19→10:35)
[2021-09-13] MEDS: TROPICAMIDE 1% OPH SOLN (MYDRIACYL) 15 ML BTL OP SCH ×3 (10:25→10:35)
[2021-09-13] MEDS: PHENYLEPHRINE 10% OPHTH (NEO-SYN) 5 ML BTL OU SCH ×3 (10:25→10:35)
[2021-09-13 10:31] VITALS: BP 139/79
--- NOTE | 2021-09-13 10:47 | Ophthalmologist Pre-Op Note ---
Pre-Operative Progress Note H&P Reviewed The H&P was reviewed, patient examined and no changes noted. Date H&P Reviewed: September 13, 2021 Time H&P Reviewed: 10:47 Pre-Op Dx Cataract, Left Eye ANTONIO WOODS MD September 13, 2021 10:47
--- NOTE | 2021-09-13 11:09 | Ophthalmology Operative Report ---
Cataract removal/placement IOL PREOPERATIVE DIAGNOSIS: Cataract Left Eye POSTOPERATIVE DIAGNOSIS: Cataract Left Eye PROCEDURE: Cataract removal and placement of posterior chamber implant, left eye SURGEON: Jose Woods ANESTHESIA: Topical with sedation COMPLICATIONS: None ESTIMATED BLOOD LOSS: Minimal DESCRIPTION OF PROCEDURE: After proper informed consent was obtained, the patient, a 66 female, was taken to the Operating Room and the left eye was anesthetized with tetracaine. The left eye was then prepped and draped in the usual manner. A wire lid speculum was placed. A paracentesis was made at the left hand position. Preservative free lidocaine was injected into the anterior chamber followed by viscoelastic. A clear corneal incision was made in the temporal position. A capsulorrhexis was preformed and the central nuclear and cortical material were removed. The posterior capsule was polished and an Guillermo 25.0 AU00T0 was placed into the capsular bag. The residual viscoelastic was aspirated and balanced saline solution was injected into the anterior chamber. Moxifloxacin was injected into the anterior chamber. The wound was checked and found to be water tight. The patient tolerated the procedure well without complications. JOSE WOODS MD September 13, 2021 11:09
[2021-09-13 11:16] VITALS: BP 100/56
[2021-09-13] MEDS ORDERED: acetaZOLAMIDE ER 500 MG CAP (DIAMOX SEQUELS) PO ONE (12:30)
--- NOTE | 2021-09-13 13:42 | Anesthesia-General Post-Op ---
MAC Patient Condition Mental Status/LOC: Same as Preop Cardiovascular: Satisfactory Nausea/Vomiting: Absent Respiratory: Satisfactory Pain: Controlled Complications: Absent Post Op Complications Complications None Follow Up Care/Instructions Patient Instructions None needed. Anesthesiology Discharge Order Discharge Order Patient is doing well, no complaints, stable vital signs, no apparent adverse anesthesia problems. No complications reported per nursing. BRENT RODRIGUEZ CRNA September 13, 2021 13:42
== END 2021-09-13 11:18 | disposition home or self-care (01) ==
LOC: SDC 10:02
PROVIDERS: ATTEND Specialist
DX: H25.9 Unspecified age-related cataract (principal)
CPT/HCPCS: 66984; V2632

== ENCOUNTER 2021-09-17 09:30 | Day surgery (SDC) | payer MEDICARE, OTHER ==
[~2021-09-17] VITALS: Ht 152 cm; Wt 63.6 kg
[2021-09-17] MEDS: TETRACAINE 0.5% OPHTH SOLN 4 ML BTL (SINGLE DOSE ONLY) OU PRN ×4 (09:38→09:54)
[2021-09-17] MEDS: TROPICAMIDE 1% OPH SOLN (MYDRIACYL) 15 ML BTL OP SCH ×3 (09:44→09:54)
[2021-09-17] MEDS: PHENYLEPHRINE 10% OPHTH (NEO-SYN) 5 ML BTL OU SCH ×3 (09:44→09:54)
[2021-09-17] MEDS ORDERED: POVIDONE (BETADINE) OPHTH SOLN 5% 30 ML OP ONE (09:45)
[2021-09-17] MEDS ORDERED: MOXIFLOXACIN OPHTH SOLN 5 MG/ML 0.3 ML SYRINGE OP ONE (09:45)
[2021-09-17] MEDS ORDERED: LIDOCAINE PF 1% 2 ML VIAL IR PRN (09:45)
[2021-09-17] MEDS ORDERED: TIMOLOL MALEATE 0.5% 5 ML (TIMOPTIC) BTL OU PRN (09:45)
[2021-09-17 09:50] VITALS: BP 116/66
[2021-09-17] MEDS ORDERED: MIDAZOLAM 2 MG/2 ML (VERSED) VIAL ONE (10:16)
--- NOTE | 2021-09-17 10:35 | Ophthalmologist Pre-Op Note ---
Pre-Operative Progress Note H&P Reviewed The H&P was reviewed, patient examined and no changes noted. Date H&P Reviewed: September 17, 2021 Time H&P Reviewed: 10:35 Pre-Op Dx Cataract, Right Eye ANTONIO WOODS MD September 17, 2021 10:35
--- NOTE | 2021-09-17 11:02 | Ophthalmology Operative Report ---
Cataract removal/placement IOL PREOPERATIVE DIAGNOSIS: Cataract Right Eye POSTOPERATIVE DIAGNOSIS: Cataract Right Eye PROCEDURE: Cataract removal and placement of posterior chamber implant, right eye SURGEON: Jose Woods ANESTHESIA: Topical with sedation COMPLICATIONS: None ESTIMATED BLOOD LOSS: Minimal DESCRIPTION OF PROCEDURE: After proper informed consent was obtained, the patient, a 66 female, was taken to the Operating Room and the right eye was anesthetized with tetracaine. The right eye was then prepped and draped in the usual manner. A wire lid speculum was placed. A paracentesis was made at the left hand position. Preservative free lidocaine was injected into the anterior chamber followed by viscoelastic. A clear corneal incision was made in the temporal position. A capsulorrhexis was preformed and the central nuclear and cortical material were removed. The posterior capsule was polished and Guillermo 24.0 AU00T0 IOL was placed into the capsular bag. The residual viscoelastic was aspirated and balanced saline solution was injected into the anterior chamber. Moxifloxacin was injected into the anterior chamber. The wound was checked and found to be water tight. The patient tolerated the procedure well without complications. JOSE WOODS MD September 17, 2021 11:02
[2021-09-17 11:06] VITALS: BP 109/61
[2021-09-17] MEDS ORDERED: acetaZOLAMIDE ER 500 MG CAP (DIAMOX SEQUELS) PO ONE (12:00)
--- NOTE | 2021-09-17 13:50 | Anesthesia-General Post-Op ---
MAC Patient Condition Mental Status/LOC: Same as Preop Cardiovascular: Satisfactory Nausea/Vomiting: Absent Respiratory: Satisfactory Pain: Controlled Complications: Absent Post Op Complications Complications None Follow Up Care/Instructions Patient Instructions None needed. Anesthesiology Discharge Order Discharge Order Patient is doing well, no complaints, stable vital signs, no apparent adverse anesthesia problems. No complications reported per nursing. EDU PICKARD CRNA September 17, 2021 13:50
== END 2021-09-17 11:07 | disposition home or self-care (01) ==
LOC: SDC 09:30
PROVIDERS: ATTEND Specialist
DX: H25.9 Unspecified age-related cataract (principal)
CPT/HCPCS: 66984; V2632

== ENCOUNTER → 2022-06-15 | Outpatient (CLI) | payer MEDICARE, OTHER ==
--- NOTE | 2022-06-15 16:14 | Diagnostic Imaging Report ---
INDICATION: Routine screening. COMPARISON: 05/20/2021 and 05/19/2020. TECHNIQUE: 2D and 3D bilateral screening mammography was performed with CAD. FINDINGS: Both breasts are heterogeneously dense, limiting the sensitivity of mammography. Innumerable microcalcifications are again noted throughout both breasts, limiting evaluation. No mass is identified. The axillae are unremarkable. IMPRESSION: No mammographic features suspicious for malignancy are identified. ACR BI-RADS Category 2: Benign findings. Result letter will be mailed to the patient. Note: At least 10% of breast cancer is not imaged by mammography. Dictated by: Dictated on workstation # [id number]
== END ==
LOC: RAD 10:10
PROVIDERS: ATTEND Family Medicine
DX: Z12.31 Encounter for screening mammogram for malignant neoplasm of breast (principal)
CPT/HCPCS: 77063; 77067

== ENCOUNTER 2022-09-09 22:17 | Emergency (ER) | payer MEDICARE, OTHER ==
[~2022-09-09] VITALS: Ht 152 cm; Wt 63.5 kg
[2022-09-09 22:50] LABS: BASOPHILS % (AUTO) 0 % (0-10); EOSINOPHILS # (AUTO) 0.3 10^3/uL (0.0-0.3); EOSINOPHILS % (AUTO) 4 % (0-10); HEMATOCRIT 39 % (35-52); HEMOGLOBIN 13.1 g/dL (11.5-16.0); LYMPHOCYTES # (AUTO) 2.2 10^3/uL (1.0-4.0); LYMPHOCYTES % (AUTO) 28 % (12-44); MEAN CORPUSCULAR HEMOGLOBIN 31 pg (25-34); MEAN CORPUSCULAR HGB CONC 34 g/dL (32-36); MEAN CORPUSCULAR VOLUME 92 fL (80-99); MONOCYTES # (AUTO) 0.7 10^3/uL (0.0-1.0); MONOCYTES % (AUTO) 9 % (0-12); NEUTROPHILS # (AUTO) 4.5 10^3/uL (1.8-7.8); NEUTROPHILS % (AUTO) 58 % (42-75); PLATELET COUNT 295 10^3/uL (130-400); WHITE BLOOD COUNT 7.9 10^3/uL (4.3-11.0)
[2022-09-09 22:53] LABS: CHLORIDE 102 MMOL/L (98-107); POTASSIUM 3.6 MMOL/L (3.6-5.0); SODIUM 137 MMOL/L (135-145)
[2022-09-09 22:54] LABS: CALCIUM 9.3 MG/DL (8.5-10.1)
--- NOTE | 2022-09-09 22:54 | ED General ---
General Chief Complaint: Neurological Problems Stated Complaint: DIZZY/OFF BALANCE/SOA Nursing Triage Note: pt reports several dizzy spells this evening and jaw tightness, extremity tremors, and nausea that began around 2114 this evening. pt denies chest pain, denies ANDRADE, but states she had a ANDRADE earlier this morning. BOP is elevated at triage, pt has hx of HTN but states it is under control with meds. Source of Information: Patient History of Present Illness Date Seen by Provider: September 09, 2022 Time Seen by Provider: 22:40 Initial Comments PT ARRIVES VIA POV FROM LOCAL [facility] WITH PT STATES AROUND [id number] TONIGHT, [facility], AND BEGAN TO FEEL DIZZY AND THEN HER HANDS AND HER LIPS AND CHIN STARTED QUIVERING, AND UNDERNEATH HER CHIN FELT TIGHT WHEN HER LIPS AND CHIN BEGAN TO QUIVER. NO HEADACHE NO VISION CHANGES NO PARESTHESIAS OR MOTOR DEFICITS. NO PROBLEMS WALKING NO CHEST PAIN NO PALPITATIONS NO SYNCOPE NO SWEATS NO CONFUSION OR MEMORY LOSS NO DIFFICULTY TALKING OR SWALLOWING SLIGHT NAUSEA, NO VOMITING OR DIARRHEA. NO ABDOMINAL PAIN SLIGHT SHORTNESS OF BREATH, BUT NO COUGH OR WHEEZING. STATES SHE FELT FINE ALL DAY NO HISTORY OF SIMILAR. NO NEW MEDICATIONS OR MEDICATION DOSE CHANGES, AND NO MISSED DOSES OF MEDICATIONS SHE HAS HISTORY OF HTN AND HYPERLIPIDEMIA, SHE ALSO HAS HISTORY OF ANXIETY. PCP: DR. PAYAN--SEES HIM ONCE A YEAR Allergies and Home Medications Allergies Coded Allergies: Penicillins (Verified Allergy, Mild, RASH, 11/15/16) latex (Unverified Allergy, Unknown, EYE SWELLING, RASH, 11/14/16) Uncoded Allergies: RUBBER (Allergy, Unknown, EYE SWELLING, RASH, 11/14/16) Patient Home Medication List Home Medication List Reviewed: Yes Atorvastatin Calcium (Atorvastatin Calcium) 20 Mg Tablet, 20 MG PO, (Reported) Entered as Reported by: CHANDRIKA LANDRUM on 09/08/21 0916 Estradiol (Estrace Tablet) 2 Mg Tablet, 2 MG PO DAILY, (Reported) Entered as Reported by: NORBERTO LITTLE on 11/14/16 1506 Lisinopril (Zestril) 10 Mg Tablet, 10 MG PO HS, (Reported) Entered as Reported by: QIANA ROBLERO on 04/15/10 0759 Loratadine (Claritin) 10 Mg Tablet, 10 MG PO DAILY, (Reported) Entered as Reported by: NORBERTO LITTLE on 11/14/16 1506 Metoprolol Tartrate (Metoprolol Tartrate) 25 Mg Tablet, 25 MG PO BID, (Reported) Entered as Reported by: CHANDRIKA LANDRUM on 09/08/21 0916 Trazodone HCl (Trazodone HCl) 100 Mg Tablet, 50 MG PO HS, (Reported) Entered as Reported by: NORBERTO LITTLE on 11/14/16 1506 Review of Systems Review of Systems Constitutional: see HPI; No chills, No diaphoresis; dizziness; No fever, No malaise, No weakness EENTM: see HPI Respiratory: see HPI Cardiovascular: no symptoms reported Gastrointestinal: see HPI Genitourinary: no symptoms reported Musculoskeletal: no symptoms reported Skin: no symptoms reported Psychiatric/Neurological: See HPI Hematologic/Lymphatic: No Symptoms Reported Immunological/Allergic: no symptoms reported Past Mpxeamu-Sdcffk-Eofyzt Hx Patient Social History Tobacco Use?: No Smokeless Tobacco Frequency: Never a User Use of E-Cig and/or Vaping Ac: Never a User Substance use?: No Alcohol Use?: No Pt feels they are or have been: No Immunizations Up To Date Tetanus Booster (TDap): Unknown Influenza Vaccine Up-to-Date: Yes; Up-to-Date Seasonal Allergies Seasonal Allergies: Yes Past Medical History Surgeries: Yes Appendectomy, Bladder Surgery, Gallbladder, Hysterectomy, Oophorectomy, Orthopedic, Rectal Respiratory: No Cardiac: Yes High Cholesterol, Hypertension Neurological: No Reproductive Disorders: Yes (UTERO VAGINAL PROLAPSE) Female Reproductive Disorders: Denies EMERGENCY MEDICINE NURSE PRACTITIONER History: Hysterectomy Sexually Transmitted Disease: No HIV/AIDS: No Genitourinary: Yes (BLADDER SLING) Gastrointestinal: Yes (S/P RAMU AND APPY) Gall Bladder Disease Musculoskeletal: Yes (ANKLE FRACTURE) Arthritis, Fractures Endocrine: No HEENT: No Cancer: No Psychosocial: Yes Sleep Difficulties, Anxiety Integumentary: No Blood Disorders: No Adverse Reaction/Blood Tranf: No Family Medical History No Pertinent Family Hx, Cancer PAST SURGICAL HISTORY: -HYSTERECTOMY / BILATERAL SALPINGO-OOPHORECTOMY -BLADDER SLING -CHOLECYSTECTOMY -APPENDECTOMY -LEFT KNEE SCOPE / REPAIR OR TORN MENISCUS -BILATERAL CATARACT SURGERY 08/2021 Physical Exam Vital Signs Vital Signs - First Documented 09/09/22 09/10/22 22:25 01:04 Temp 36.5 Pulse 117 Resp 18 B/P (MAP) 148/97 (114) Pulse Ox 98 O2 Delivery Room Air Capillary Refill : Less Than 3 Seconds Height, Weight, BMI Height: 5'0.00" Weight: 129lbs. 0.0oz. 58.945133bq; 27.00 BMI Method:Stated General Appearance: No Apparent Distress, WD/WN, Anxious HEENT: PERRL/EOMI, TMs Normal, Normal ENT Inspection, Pharynx Normal, Moist Mucous Membranes Neck: Full Range of Motion, Normal Inspection, Non Tender, Supple; No Carotid Bruit, No JVD Respiratory: Normal Breath Sounds, No Accessory Muscle Use, No Respiratory Distress Cardiovascular: Regular Rate, Rhythm, No Edema, No JVD, No Murmur, Normal Peripheral Pulses Gastrointestinal: Non Tender, Soft Back: Normal Inspection Extremity: Normal Capillary Refill, Normal Inspection, Normal Range of Motion, Non Tender, No Calf Tenderness, No Pedal Edema Neurologic/Psychiatric: Alert, Oriented x3, No Motor/Sensory Deficits, residential sales rep II- XII Norm as Tested; No Abnormal Cerebellar Tests; Other (ANXIOUS. MILD TREMOR TO HANDS-RIGHT > LEFT; MILD TREMOR NOTED TO LOWER JAW--LIPS AND CHIN--THESE ARE INTERMITTENT. PT IS ABLE TO WALK TO AND FROM BATHROOM ON HER OWN WITHOUT DIFFICULTY) Skin: Normal Color, Warm/Dry Progress/Results/Core Measures Suspected Sepsis SIRS Temperature: Pulse: 117 Respiratory Rate: 18 Laboratory Tests 09/09/22 22:35: White Blood Count 7.9 Blood Pressure 148 /97 Mean: 114 Laboratory Tests 09/09/22 22:35: Creatinine 0.74, Platelet Count 295, Total Bilirubin 0.3 Results/Orders Lab Results Laboratory Tests Test 09/09/22 22:35 09/09/22 23:10 Range/Units White Blood Count 7.9 4.3-11.0 10^3/uL Red Blood Count 4.21 3.80-5.11 10^6/uL Hemoglobin 13.1 11.5-16.0 g/dL Hematocrit 39 35-52 % Mean Corpuscular Volume 92 80-99 fL Mean Corpuscular Hemoglobin 31 25-34 pg Mean Corpuscular Hemoglobin Concent 34 32-36 g/dL Red Cell Distribution Width 11.9 10.0-14.5 % Platelet Count 295 130-400 10^3/uL Mean Platelet Volume 10.0 9.0-12.2 fL Immature Granulocyte % (Auto) 0 % Neutrophils (%) (Auto) 58 42-75 % Lymphocytes (%) (Auto) 28 12-44 % Monocytes (%) (Auto) 9 0-12 % Eosinophils (%) (Auto) 4 0-10 % Basophils (%) (Auto) 0 0-10 % Neutrophils # (Auto) 4.5 1.8-7.8 10^3/uL Lymphocytes # (Auto) 2.2 1.0-4.0 10^3/uL Monocytes # (Auto) 0.7 0.0-1.0 10^3/uL Eosinophils # (Auto) 0.3 0.0-0.3 10^3/uL Basophils # (Auto) 0.0 0.0-0.1 10^3/uL Immature Granulocyte # (Auto) 0.0 0.0-0.1 10^3/uL Sodium Level 137 135-145 MMOL/L Potassium Level 3.6 3.6-5.0 MMOL/L Chloride Level 102 98-107 MMOL/L Carbon Dioxide Level 22 21-32 MMOL/L Anion Gap 13 5-14 MMOL/L Blood Urea Nitrogen 13 7-18 MG/DL Creatinine 0.74 0.60-1.30 MG/DL Estimat Glomerular Filtration Rate 88 BUN/Creatinine Ratio 18 Glucose Level 116 H 70-105 MG/DL Calcium Level 9.3 8.5-10.1 MG/DL Corrected Calcium 9.3 8.5-10.1 MG/DL Magnesium Level 1.7 1.6-2.4 MG/DL Total Bilirubin 0.3 0.1-1.0 MG/DL Aspartate Amino Transf (AST/SGOT) 27 5-34 U/L Alanine Aminotransferase (ALT/SGPT) 26 0-55 U/L Alkaline Phosphatase 171 H 40-136 U/L Troponin I < 0.028 <0.028 NG/ML Total Protein 7.9 6.4-8.2 GM/DL Albumin 4.0 3.2-4.5 GM/DL TSH [place] Testing 3.68 0.35-4.94 UIU/ML Serum Alcohol < 10 <10 MG/DL Urine Color YELLOW Urine Clarity CLEAR Urine pH 6.0 5-9 Urine Specific [place] 1.015 L 1.016-1.022 Urine Protein NEGATIVE NEGATIVE Urine Glucose (UA) NEGATIVE NEGATIVE Urine Ketones NEGATIVE NEGATIVE Urine Nitrite NEGATIVE NEGATIVE Urine Bilirubin NEGATIVE NEGATIVE Urine Urobilinogen 0.2 < = 1.0 MG/DL Urine Leukocyte Esterase 1+ H NEGATIVE Urine RBC (Auto) NEGATIVE NEGATIVE Urine RBC 0-2 /HPF Urine WBC 2-5 /HPF Urine Squamous Epithelial Cells 25-50 H /HPF Urine Crystals NONE /LPF Urine Bacteria FEW H /HPF Urine Casts NONE /LPF Urine Mucus NEGATIVE /LPF Urine Culture Indicated NO Urine Opiates Screen NEGATIVE NEGATIVE Urine Oxycodone Screen NEGATIVE NEGATIVE Urine Methadone Screen NEGATIVE NEGATIVE Urine Propoxyphene Screen NEGATIVE NEGATIVE Urine Barbiturates Screen NEGATIVE NEGATIVE Ur Tricyclic Antidepressants Screen NEGATIVE NEGATIVE Urine Phencyclidine Screen NEGATIVE NEGATIVE Urine Amphetamines Screen NEGATIVE NEGATIVE Urine Methamphetamines Screen NEGATIVE NEGATIVE Urine Benzodiazepines Screen NEGATIVE NEGATIVE Urine Cocaine Screen NEGATIVE NEGATIVE Urine Cannabinoids Screen NEGATIVE NEGATIVE My Orders Orders - BENITA LIANG DO Ed Iv/Invasive Line Start (09/09/22 22:42) Ekg Tracing (09/09/22 22:42) Monitor-Rhythm Ecg Trace Only (09/09/22 22:42) Alcohol (09/09/22 22:42) Cbc With Automated Diff (09/09/22 22:42) Comprehensive Metabolic Panel (09/09/22 22:42) Drug Screen Stat (Urine) (09/09/22 22:42) Magnesium (09/09/22 22:42) Thyroid Analyzer (09/09/22 22:42) Ua Culture If Indicated (09/09/22 22:42) Ct Head Wo-R/O Stroke (09/09/22 22:50) Troponin I [place] (09/09/22 22:35) Diazepam Injection (Valium Injection) (09/09/22 23:45) Diazepam Injection (Valium Injection) (09/10/22 00:15) Medications Given in ED Current Medications Medications Dose Ordered Sig/Johnnie Route Start Time Stop Time Status Last Admin Dose Admin Diazepam 1 mg ONCE ONCE IVP 09/10/22 00:15 09/10/22 00:16 DC 09/09/22 23:53 1 MG Vital Signs/I&O 09/09/22 09/10/22 22:25 01:04 Temp 36.5 Pulse 117 79 Resp 18 16 B/P (MAP) 148/97 (114) 121/73 Pulse Ox 98 98 O2 Delivery Room Air Room Air Capillary Refill : Less Than 3 Seconds Blood Pressure Mean: 114 Progress Note : Progress Note PT WITH ELEVATED BLOOD PRESSURE ON ARRIVAL, SHE IS FAIRLY ANXIOUS ON ARRIVAL PT DID CALM SOME AND HER BLOOD PRESSURE CAME DOWN PT BECAME A LITTLE CALMER. PT STILL WITH INTERMITTENT MILD QUIVERING OF HER HANDS--MORE ON THE RIGHT, AND OF HER LIP/CHIN/LOWER JAW. GIVEN VALIUM --ALL TREMULOUSNESS STOPPED, AND PT SLEPT. VITALS STABLE. PT OBSERVED IN ER AFTER SHE RECEIVED VALIUM NO HYPOXIA OR SNOROUS BREATHING. STATES SHE NORMALLY SLEEPS VERY DEEP AND IS HARD TO WAKE UP ( SHE TAKES TRAZADONE AT HS FOR SLEEP ) 0100--PT IS AWAKE, ALERT, ORIENTED X 4, ALL SYMPTOMS HAVE RESOLVED, PT IS ABLE TO STAND AND WALK ON HER OWN. REVIEWED ALL TEST RESULTS, ANTICIPATED COURSE, NEED FOR FOLLOW UP AND RETURN PRECAUTIONS. REVIEWED PRIOR RECORDS, ER VISITS, ADMITS/H&P'S/CONSULTS/DISCHARGE SUMMARIES, TESTS/PROCEDURES. ECG Initial ECG Impression Date: September 09, 2022 Initial ECG Impression Time: 23:27 Initial ECG Rate: 84 Initial ECG Rhythm: Normal Sinus Initial ECG Intervals: Normal Initial ECG Impression: Normal Initial ECG Comparisson: No Previous ECG Available Comment INTERPRETED BY ME Diagnostic Imaging Comments CT HEAD--NO ACUTE PROCESS, PER [facility] RADIOLOGIST VIA PHONE AT [id number] Reviewed: Reviewed by Me Departure Impression Primary Impression: Dizziness Additional Impression: Tremulousness Disposition: 01 HOME, SELF-CARE Condition: Improved Departure-Patient Inst. Referrals: DIANELYS PAYAN DO (PCP/Family) Primary Care Physician Patient Instructions: Dizziness, Adult ED, Tremor Add. Discharge Instructions: HOME, REST CONTINUE YOUR REGULAR MEDICATIONS PRESCRIBED, BUT HOLD YOUR DOSE OF TRAZADONE TONIGHT. FOLLOW UP WITH YOUR DR ON MONDAY, RETURN TO ER IF SYMPTOMS WORSEN All discharge instructions reviewed with patient and/or family. Voiced understanding. BENITA LIANG DO September 09, 2022 22:54
[2022-09-09 22:56] LABS: GLUCOSE 116 MG/DL (70-105); TOTAL PROTEIN 7.9 GM/DL (6.4-8.2)
[2022-09-09 22:57] LABS: BILIRUBIN,TOTAL 0.3 MG/DL (0.1-1.0); CARBON DIOXIDE 22 MMOL/L (21-32)
[2022-09-09 22:59] LABS: ALKALINE PHOSPHATASE 171 U/L (40-136); CREATININE SERUM 0.74 MG/DL (0.60-1.30); GFR ESTIMATED 88
[2022-09-09 23:01] LABS: BUN/CREATININE RATIO 18
[2022-09-09 23:02] LABS: ALANINE AMINOTRANSFERASE 26 U/L (0-55); MAGNESIUM 1.7 MG/DL (1.6-2.4)
[2022-09-09 23:18] LABS: BILIRUBIN,URINE NEGATIVE (NEGATIVE); CLARITY,URINE CLEAR; COLOR,URINE YELLOW; GLUCOSE, URINE (UA) NEGATIVE (NEGATIVE); KETONES,URINE NEGATIVE (NEGATIVE); LEUKOCYTE ESTERASE ,URINE 1+ (NEGATIVE); NITRITE,URINE NEGATIVE (NEGATIVE); PROTEIN,URINE NEGATIVE (NEGATIVE)
[2022-09-09 23:22] LABS: TSH (THYROID ANALYZER) 3.68 UIU/ML (0.35-4.94)
[2022-09-09 23:25] LABS: BACTERIA,URINE FEW /HPF; RBC,URINE 0-2 /HPF; SQUAMOUS EPITHELIAL CELL,UR 25-50 /HPF
[2022-09-09 23:31] LABS: AMPHETAMINE SCREEN, URINE NEGATIVE (NEGATIVE); BARBITURATE SCREEN URINE NEGATIVE (NEGATIVE); BENZODIAZEPINES SCREEN URINE NEGATIVE (NEGATIVE); CANNABINOID SCREEN, URINE NEGATIVE (NEGATIVE); COCAINE SCREEN URINE NEGATIVE (NEGATIVE); METHADONE STAT NEGATIVE (NEGATIVE); OPIATE SCREEN URINE NEGATIVE (NEGATIVE); OXYCODONE STAT NEGATIVE (NEGATIVE); PROPOXYPHENE STAT NEGATIVE (NEGATIVE); TRICYCLIC ANTIDEPRESSANTS SCRE NEGATIVE (NEGATIVE)
[2022-09-10 01:04] VITALS: BP 121/73
--- NOTE | 2022-09-10 06:44 | Diagnostic Imaging Report ---
PROCEDURE: CT head wo r/o stroke. TECHNIQUE: Multiple contiguous axial images were obtained through the brain without the use of intravenous contrast. Auto Exposure Controls were utilized during the CT exam to meet ALARA standards for radiation dose reduction. INDICATION: Altered mental status. COMPARISON: None FINDINGS: Scattered hypoattenuation within the bilateral periventricular white matter within the region of the watershed territories. No intra- or extra-axial mass or fluid collection. No acute hemorrhage. The ventricles are normal in size, shape, and morphology. The felton-white matter junction is normal. The subarachnoid cisterns are patent. The visualized paranasal sinuses are normal. The visualized portions of the orbits and globes are normal. The mastoid air cells are clear. The spanish interpreter topogram shows no lytic lesion or fracture. Impression: Scattered hypoattenuation within the bilateral periventricular white matter within the region of the carotid territories which may be seen with chronic small vessel ischemic disease or age indeterminate without watershed infarcts. Consider further workup with brain MRI and CTA of the head and neck to evaluate for any carotid stenosis. No acute intracranial hemorrhage or hydrocephalus. Dictated by: Dictated on workstation # [id number]
== END 2022-09-10 01:04 | disposition home or self-care (01) ==
LOC: EDUNIT# 22:17 → ER 22:20
DX: R42 Dizziness and giddiness (principal); R25.1 Tremor, unspecified; Z91.040 Latex allergy status
CPT/HCPCS: 70450; 80053; 80306; 81000; 83735; 84443; 84484; 85025; 93005; 99284; G0480; 36415; 80320